=== PATIENT | female | born 1955 | race Caucasian/White ===

== ENCOUNTER → 2024-04-07 13:59 | Outpatient (REF) | payer MEDICARE, OTHER, SELFPAY | LOC: HWWDC 13:59 | PROVIDERS: ATTENDING PHYSICIAN Physician Assistant; FAMILY PHYSICIAN Student in an Organized Health Care Education/Training Program | DX: Z12.31 Encounter for screening mammogram for malignant neoplasm of breast (principal) | CPT/HCPCS: 77063; 77067 ==

== ENCOUNTER → 2024-04-27 13:01 | Outpatient (REF) | payer MEDICARE, OTHER, SELFPAY ==
[2024-04-27 14:45] LABS: Hematocrit 36.8 % (37.0-47.0); Hemoglobin 12.3 g/dL (12.0-16.0); Mean Corp Hgb Conc. 33.4 g/dL (33.0-37.0); Mean Corpuscular Hgb 31.3 pg (27.0-31.0); Mean Corpuscular Volume 93.6 fL (81.0-99.0); Mean Platelet Volume 9.7 fL (7.4-10.4); Platelet Count 268 10^3/uL (130-400); Red Blood Cell Count 3.93 10^6/uL (4.20-5.40); Red Cell Dist. Width 13.2 % (11.5-14.5); White Blood Cell Count 6.1 10^3/uL (4.8-10.8)
[2024-04-27 15:21] LABS: ALT (SGPT) 30 U/L (0-35); AST (SGOT) 32 U/L (14-36); Albumin 4.5 g/dl (3.5-5.0); Alkaline Phosphatase 70 U/L (38-126); Blood Urea Nitrogen 14 mg/dl (7-17); Calcium 9.7 mg/dl (8.4-10.2); Carbon Dioxide 28 mmol/L (22-30); Chloride 102 mmol/L (98-107); Glucose 120 mg/dl (70-99); Potassium 4.3 mmol/L (3.5-5.1); Sodium 138 mmol/L (135-145); Total Bilirubin 0.4 mg/dl (0.2-1.3); Total Protein 7.1 g/dl (6.3-8.2); eGFR > 60.00
[2024-04-27 15:39] LABS: Free T3 3.79 pg/ml (2.77-5.27); Free T4 1.18 ng/dl (0.78-2.19)
[2024-04-27 15:52] LABS: TSH 0.42 uIU/ml (0.47-4.68)
== END ==
LOC: HWLAB 13:01
PROVIDERS: ATTENDING PHYSICIAN Internal Medicine Endocrinology, Diabetes & Metabolism; FAMILY PHYSICIAN Student in an Organized Health Care Education/Training Program
DX: E05.11 Thyrotoxicosis with toxic single thyroid nodule with thyrotoxic crisis or storm (principal)
CPT/HCPCS: 36415; 80053; 84439; 84443; 84481; 85027

== ENCOUNTER → 2024-05-20 10:03 | Outpatient (REF) | payer MEDICARE, OTHER, SELFPAY | LOC: RAD 10:03 | PROVIDERS: ATTENDING PHYSICIAN Surgery Vascular Surgery; FAMILY PHYSICIAN Student in an Organized Health Care Education/Training Program | DX: I74.5 Embolism and thrombosis of iliac artery (principal); I77.9 Disorder of arteries and arterioles, unspecified | CPT/HCPCS: 93922; 93925; 93978 ==

== ENCOUNTER 2024-07-21 08:12 | Emergency (ER) | payer MEDICARE, OTHER, SELFPAY ==
[2024-07-21 08:14] VITALS: BP 145/106
--- NOTE | 2024-07-21 08:34 | ED.GENMED ---
History of Present Illness
General
Chief Complaint: Chest Pain
Source: patient
Exam Limitations: none
Time Seen by Provider: 07/21/24 08:23
Nursing documentation reviewed up to this point in time: agreed with
History of Present Illness
History of Present Illness:
69-year-old female with past medical history of asthma, vascular disease multiple vascular stents in the abdomen and iliacs presenting to the emergency department today with concerns of chest discomfort described as achy and sharp intermittently a
few times an hour over the last 4 days and also some ongoing shortness of breath made worse with exertion over the past few days as well. Has been felt somewhat lightheaded occasionally as well. Denies any nausea vomiting fevers. Currently feels
well.
Past History
Past History
ED Past Medical History: Hypercholesterolemia, Hypothyroidism and Other (chronic foot pain, trigeminal neuralgia, thyroid disease)
ED Past Surgical History: Cholecystectomy and Other (foot surgery, partial thyroidectomy, vascular surgery)
Social History
Tobacco: Smoker
Alcohol: Daily (wine 1-2 glasses)
Drug: None
Personal:
Living: with family
Employment: Retired
Review of Systems
Review of Systems
Allergies reviewed?: Yes
All Other Systems: ROS reviewed and negative except as documented in HPI and ROS
Phy Exam
Physical Exam
Physical Exam:
GENERAL: Alert , in no apparent distress
EYE: pupils equal and reactive
NECK: Supple, no significant adenopathy.
ENT: o/p clr, mmm.
CARDIAC: Regular rate and rhythm .
LUNGS: Clear breath sounds bilaterally, no acute respiratory distress, no wheezes/rales/rhonchi
ABDOMEN: Soft, without focal tenderness, no r/g, no cvat
NEUROLOGICAL: Alert and oriented, no focal neuro deficits
SKIN: Warm and dry, skin intact.
MUSCULOSKELETAL: No edema, well perfused.
PSYCH: Normal and appropriate interaction.
Scores
Heart Score for Chest Pain Patients
STEMI patient?: No
History: Slightly or Non-Suspicious
ECG: Normal
Age: >/= 65 years
Risk Factors: >/= 3 Risk Factors or History of CAD
Troponin: </= Normal Limit
Heart Score for Chest Pain Patients: 4
Heart Score Risk: 20.3% MACE over next 6 weeks
Course
Orders/Labs/Results
Orders:
Orders
07/21/24 08:17
ECG [Electrocardiogram (*1)] Urgent
Reason for Study: Chest Pain
EKG- Treatment ONCE
07/21/24 08:34
Cardiac Monitoring- Treatment ONCE
CR Chest - 2 Views Urgent
Comment:
Reason For Exam: left CP, SOB
07/21/24 08:58
Complete Blood Count/With Diff Urgent
NT-proBNP Urgent
TSH Urgent
Troponin I Urgent
07/21/24 08:59
Comprehensive Metabolic Panel Urgent
D-Dimer Urgent
Magnesium Urgent
07/21/24 10:52
Urinalysis Reflex To Culture Urgent
Date Specimen was Collected: 07/21/24
Time Specimen was Collected: 10:31
Abnormal Lab Results
07/21/24
08:59
D-Dimer 0.67 H ug/mlFEU
(0.00-0.50)
07/21/24 08:58
07/21/24 08:59
Vital Signs
Initial and Last Documented VS:
Initial Vital Signs
Temp Pulse Resp BP Pulse Ox
97.8 F 69 18 145/106 100
07/21/24 08:14 07/21/24 08:14 07/21/24 08:14 07/21/24 08:14 07/21/24 08:14
Last Documented Vital Signs
Temp Pulse Resp BP Pulse Ox
97.8 F 52 28 129/79 100
07/21/24 08:14 07/21/24 08:52 07/21/24 08:52 07/21/24 08:52 07/21/24 08:14
MDM/Problems Addressed
MDM/Problems Addressed:
69-year-old female presenting with concerns of intermittent chest pain shortness of breath lightheadedness over the past 4 days here patient is well-appearing blood pressure slightly elevated otherwise vital signs are normal. Lungs are clear heart
sounds normal good peripheral pulses. Denies recent leg swelling. Does have multiple stents and vascular disease also describes the chest pain as intermittently sharp with associated shortness of breath concerning this plan to test with a D-dimer
to rule out PE additionally testing for ACS. Age-adjusted D-dimer negative. Low risk for PE no further workup indicated in this regard troponin negative. Patient has had symptoms for multiple days indicating no evidence of ACS recently.
Additional labs without acute abnormalities. Patient well-appearing walking ambulating in no distress appears stable for outpatient follow-up closely with her district court justice return precautions given.
*Critical Care Note
Total Time (30-74mins, 75-104mins- exclusive of procedures): Not Applicable
ED Attending Note
-
Portions of this chart may have been created with voice recognition software.� Occasional wrong word or��sound alike� substitutions may have occurred due to the inherent limitations of voice recognition software.
Discharge Plan
Departure
Patient Disposition: Home (Routine Discharge)
Date of Disposition: 07/21/24
Time of Disposition: 11:05
Patient with high blood pressure during this ER visit?: No
Condition: Good
Covid-19: Not Applicable
Discharge Problem:
Chest pain
Instructions: Chest Pain NON-DHP [employer] Follow Up
Prescriptions:
No Action
albuterol sulfate 1 PUFF HFA aerosol inhaler
1 puff inhalation BID
Patient Comments:
asthma
omeprazole 40 mg Capsule,Delayed Release(Dr/Ec)
40 mg PO DAILY
aspirin 81 mg Tablet,Delayed Release (Dr/Ec)
81 mg PO DAILY
tramadol 50 mg Tablet
50 mg PO DAILY PRN (Reason: pain)
methimazole 5 mg Tablet
5 mg PO MOWEFR
ondansetron 4 mg Tablet,Disintegrating
4 mg PO Q6H PRN (Reason: nausea)
cholecalciferol (vitamin D3) [Vitamin D3] 10 mcg (400 unit) Tablet
10 mcg PO DAILY
dicyclomine 10 mg Capsule
10 mg PO TID PRN (Reason: stomach spams)
diazepam 5 mg Tablet
5 mg PO BID
ezetimibe [Zetia] 10 mg Tablet
10 mg PO QPM
rosuvastatin 10 mg Tablet
10 mg PO QPM
simethicone 125 mg Tablet,Chewable
250 mg PO BID PRN (Reason: gas)
Flonase Sensimist 27.5 mcg/actuation [place],Suspension
2 spray INTRANASAL DAILY
clopidogrel 75 mg Tablet
75 mg PO DAILY Qty: 90 0RF
Referrals:
Sol Gaxiola MD [Family Provider] -
Activity Restrictions/Additional Instructions:
You came to the emergency department today for concerns of shortness of breath and chest pain. Here you had a reassuring assessment. Please follow closely with your district court justice within 1 week. Return to the emergency department for any worsening,
new or concerning symptoms.
Discharge Date and Time
Print Language: JAPANESE
[2024-07-21 08:52] VITALS: BP 129/79
[2024-07-21 09:16] LABS: % Basophils 0.7 % (0-2); % Eosinophils 2.8 % (0-6); % Immature Granulocytes 0.2 % (0-0.5); % Lymphocytes 29.7 % (20.5-51.1); % Neutrophils 58.6 % (42.2-75.2); Absolute Eosinophils 0.2 10^3/uL (0-0.7); Absolute Lymphocytes 1.7 10^3/uL (1.2-3.4); Absolute Monocytes 0.5 10^3/uL (0.1-0.6); Absolute Neutrophils 3.4 10^3/uL (1.4-6.5); Hematocrit 40.2 % (37.0-47.0); Hemoglobin 13.6 g/dL (12.0-16.0); Mean Corp Hgb Conc. 33.8 g/dL (33.0-37.0); Mean Corpuscular Hgb 30.8 pg (27.0-31.0); Mean Corpuscular Volume 91.2 fL (81.0-99.0); Mean Platelet Volume 9.8 fL (7.4-10.4); Nucleated Red Blood Cells % 0 %; Platelet Count 238 10^3/uL (130-400); Red Blood Cell Count 4.41 10^6/uL (4.20-5.40); Red Cell Dist. Width 12.6 % (11.5-14.5); White Blood Cell Count 5.8 10^3/uL (4.8-10.8)
[2024-07-21 09:34] LABS: ALT (SGPT) 29 U/L (0-35); AST (SGOT) 33 U/L (14-36); Albumin 4.5 g/dl (3.5-5.0); Alkaline Phosphatase 68 U/L (38-126); Blood Urea Nitrogen 13 mg/dl (7-17); Calcium 9.9 mg/dl (8.4-10.2); Carbon Dioxide 26 mmol/L (22-30); Chloride 102 mmol/L (98-107); Glucose 93 mg/dl (70-99); Magnesium 1.9 mg/dl (1.6-2.3); Potassium 4.3 mmol/L (3.5-5.1); Sodium 141 mmol/L (135-145); Total Bilirubin 0.3 mg/dl (0.2-1.3); eGFR > 60.00
[2024-07-21 09:43] LABS: NT-proBNP 261 pg/ml; Troponin I < 0.012 ng/ml
[2024-07-21 10:00] LABS: D-Dimer 0.67 ug/mlFEU (0.00-0.50)
[2024-07-21 10:19] LABS: TSH 0.52 uIU/ml (0.47-4.68)
[2024-07-21 11:14] LABS: Urine Albumin Negative (Neg - Trace); Urine Bilirubin Negative (Negative); Urine Character Clear (Clear); Urine Color Yellow; Urine Glucose Negative (Negative); Urine Ketone Negative (Negative); Urine Leukocyte Negative (Negative); Urine Nitrite Negative (Negative); Urine Occult Blood Negative (Negative); Urine Urobilinogen Negative (Neg - 1+)
== END 2024-07-21 11:24 | disposition home or self-care (01) ==
LOC: EMR 08:12
PROVIDERS: Physician Assistant; EMERGENCY PHYSICIAN Student in an Organized Health Care Education/Training Program; FAMILY PHYSICIAN Student in an Organized Health Care Education/Training Program; OTHER PHYSICIAN Internal Medicine Hospice and Palliative Medicine
DX: R07.89 Other chest pain (principal); J45.909 Unspecified asthma, uncomplicated; I99.9 Unspecified disorder of circulatory system; E78.00 Pure hypercholesterolemia, unspecified; E03.9 Hypothyroidism, unspecified; I25.10 Atherosclerotic heart disease of native coronary artery without angina pectoris; F17.200 Nicotine dependence, unspecified, uncomplicated; Z90.49 Acquired absence of other specified parts of digestive tract
CPT/HCPCS: 99283; 71046; 80053; 81003; 83735; 83880; 84443; 84484; 85025; 85379; 93005

== ENCOUNTER → 2024-08-10 10:05 | Outpatient (REF) | payer MEDICARE, OTHER, SELFPAY | LOC: RAD 10:05 | PROVIDERS: ATTENDING PHYSICIAN Surgery Vascular Surgery; FAMILY PHYSICIAN Student in an Organized Health Care Education/Training Program | DX: I73.9 Peripheral vascular disease, unspecified (principal) | CPT/HCPCS: 75635; Q9967 ==

== ENCOUNTER → 2024-08-31 08:16 | Outpatient (REF) | payer MEDICARE, OTHER, SELFPAY | LOC: RAD 08:16 | PROVIDERS: ATTENDING PHYSICIAN Surgery Vascular Surgery; FAMILY PHYSICIAN Student in an Organized Health Care Education/Training Program | DX: I73.9 Peripheral vascular disease, unspecified (principal); I65.23 Occlusion and stenosis of bilateral carotid arteries | CPT/HCPCS: 93880 ==

== ENCOUNTER 2024-09-21 06:09 | Day surgery (SDC) | payer MEDICARE, OTHER, SELFPAY ==
[2024-09-21] VITALS (21 sets, daily range): BP systolic 80–155; BP diastolic 36–115; BMI 22.1
[2024-09-21 07:06] LABS: Hematocrit 35.6 % (37.0-47.0); Hemoglobin 12.4 g/dL (12.0-16.0); Mean Corp Hgb Conc. 34.8 g/dL (33.0-37.0); Mean Corpuscular Hgb 31.8 pg (27.0-31.0); Mean Corpuscular Volume 91.3 fL (81.0-99.0); Platelet Count 210 10^3/uL (130-400); Red Cell Dist. Width 12.9 % (11.5-14.5); White Blood Cell Count 9.3 10^3/uL (4.8-10.8)
[2024-09-21] MEDS: NSS 181 ML IV (07:08)
[2024-09-21 07:13] LABS: INR 0.97; PT 13.3 Sec (11.4-14.6)
[2024-09-21 07:14] LABS: APTT 27.2 Sec (23.4-35.0)
[2024-09-21] MEDS: IMODIUM 2 MG PO (07:21)
[2024-09-21 07:25] LABS: Blood Urea Nitrogen 14 mg/dl (7-17); Calcium 9.6 mg/dl (8.4-10.2); Carbon Dioxide 23 mmol/L (22-30); Chloride 105 mmol/L (98-107); Estimated Creatinine Clearance 77 ml/min; Glucose 124 mg/dl (70-99); Potassium 3.9 mmol/L (3.5-5.1); Sodium 138 mmol/L (135-145); eGFR > 60.00
--- NOTE | 2024-09-21 07:34 | W.SUR.PREOP ---
Pre-Operative Surgical Note
-
I have examined this patient prior to the performance of the scheduled procedure.
The patient's condition is unchanged from the time of the current History and
Physical and the patient is able to undergo the scheduled procedure.
--- NOTE | 2024-09-21 08:24 | W.IMMPOSTOP ---
Surgical Immed Post Op Note
-
Primary Surgeon: Dr. Cristian Navarro III, MD
Assisting Surgeon: Bill Simms MD, PhD (PGY-2)
Pre-op Diagnosis: Right external iliac artery stenosis
Post-op Diagnosis: Right external iliac artery stenosis
Procedure Performed: Right lower extremity arteriogram, balloon angioplasty with stent
Anesthesia Type: MAC
Specimen / Cultures: None
Estimated Blood Loss: 2cc
Complications: None
Operative Findings: The patient was brought to the OR and prepped and draped in usual sterile fashion. Fluoroscopy was used to identify the inferior and superior borders of the femoral head and this was marked at the skin level. Ultrasound guidance
was used to to identify the right common femoral artery. Micropuncture kit was used to access the right common femoral artery. This was upsized to a 5 sami sheath over a Rsync.netson wire. Diagnostic arteriogram showed a patent aorto-iliac stent
extending into the left external iliac artery and right common iliac artery. There was a focal area of stenosis observed in the right external iliac artery. Balloon angioplasty was performed and a stent was delivered at this site. A balloon
angioplasty was again performed at the distal aspect of the right common iliac stent and again at the external iliac to common femoral artery. At the conclusion of the case, completion arteriogram showed a patent aortoiliac stent system as well as a
patent external iliac stent. The patient was transferred to the PACU in stable condition with doppler signals noted in her DP and PT.
--- NOTE | 2024-09-21 08:30 | OR.RPT ---
Operative Report
Operative Report
Date of Operation: 09/21/2024
Pre Op Diagnosis: High-grade stenosis right external iliac artery
Post Op Diagnosis: High-grade stenosis right external iliac artery
Procedure:
1.) Balloon angioplasty and stenting of right external iliac artery (7 mm x 59 mm Robinson VBX stent)
2.) balloon angioplasty of right common femoral artery (7 mm x 40 mm)
3.) Diagnostic aortobiiliac arteriogram
4.) Ultrasound-guided percutaneous access to the right common femoral artery
Surgeon: Cristian Navarro III, MD
Code Enforcement Supervisor: Bill Simms MD PhD, PGY2
Anesthesia: Sedation with local
Fluoroscopy:
6.3 min
65 mGy
17.93 Gy.cm2
Complications: None
Estimated Blood Loss: Less than 5 cc
History and Indications for Procedure: 69-year-old female status post extensive aortoiliac stent grafting for debilitating lower extremity claudication. On surveillance imaging she developed a high-grade stenosis of her right external iliac artery.
We brought her to the operating room for endovascular intervention.
Procedure in Detail: Sita Ibarra was correctly identified and placed supine on the operating table. After adequate induction of anesthesia the bilateral groins were prepped and draped in the usual sterile fashion. A timeout was performed with the
nursing and anesthesia staff confirming the patient's identity as well as the nature and laterality of the procedure.
The right common femoral artery was identified under ultrasound guidance. The artery was patent. The superior and inferior aspects of the femoral head were identified with radiographic guidance and marked at the skin level. The proposed puncture
site was infiltrated with local anesthesia. Under ultrasound guidance we accessed the right common femoral artery with a micropuncture needle and upsized to a 6 Fr sheath over a Bentson wire.
A diagnostic arteriogram was performed through the 6 [place] retrograde sheath. This confirmed a high-grade stenosis involving the proximal right external iliac artery. The iliac bifurcation was patent.
ENDOVASCULAR INTERVENTION: Systemic heparin was administered. Under roadmap guidance I brought into position a 7 mm x 59 mm Robinson VBX stent. The stent was positioned in the desired location in the right external iliac artery and deployed by
inflating the balloon to nominal pressure. Subsequent arteriogram demonstrated a widely patent stent with no residual stenosis identified. There was however a more distal stenosis involving the common femoral artery. I treated this with a 7 mm x
40 mm angioplasty balloon.
COMPLETION ARTERIOGRAM: Excellent technical result. Widely patent right external iliac artery stent. Patent common femoral artery with only mild residual stenosis identified.
Satisfied with this result we concluded the procedure. Protamine was administered. The sheath tip was secured in place with the plan to pull it in the recovery room.
The patient tolerated the procedure well and was taken to the recovery area in stable condition.
Attestation: I was present and responsible for the entire procedure.
Signed:
Cristian Navarro III, MD
[facility]
[phone] (rrsm)
[2024-09-21] MEDS: TYLENOL 650 MG PO (08:57)
[2024-09-21] MEDS: ROXICODONE 5 MG PO (09:35)
[2024-09-21] MEDS: NSS 1000 IV (09:39)
== END 2024-09-21 14:51 | disposition home or self-care (01) ==
LOC: CATH 06:09
PROVIDERS: ATTENDING PHYSICIAN Surgery Vascular Surgery; FAMILY PHYSICIAN Student in an Organized Health Care Education/Training Program; OTHER PHYSICIAN Student in an Organized Health Care Education/Training Program
DX: I70.211 Atherosclerosis of native arteries of extremities with intermittent claudication, right leg (principal); I70.8 Atherosclerosis of other arteries; Z79.82 Long term (current) use of aspirin; Z79.02 Long term (current) use of antithrombotics/antiplatelets; E03.9 Hypothyroidism, unspecified; K21.9 Gastro-esophageal reflux disease without esophagitis; Z87.891 Personal history of nicotine dependence; Z95.820 Peripheral vascular angioplasty status with implants and grafts
CPT/HCPCS: 37221; 37224; 75630; 80048; 85027; 85610; 85730; 86850; 86900; 86901; C1725; C1769; C1874; C1894; Q9967

== ENCOUNTER → 2024-10-22 08:46 | Outpatient (REF) | payer MEDICARE, OTHER, SELFPAY ==
[2024-10-22 11:01] LABS: Hematocrit 40.7 % (37.0-47.0); Hemoglobin 13.3 g/dL (12.0-16.0); Mean Corp Hgb Conc. 32.7 g/dL (33.0-37.0); Mean Corpuscular Hgb 30.7 pg (27.0-31.0); Mean Platelet Volume 10.4 fL (7.4-10.4); Platelet Count 236 10^3/uL (130-400); Red Blood Cell Count 4.33 10^6/uL (4.20-5.40); Red Cell Dist. Width 12.8 % (11.5-14.5); White Blood Cell Count 5.2 10^3/uL (4.8-10.8)
[2024-10-22 11:21] LABS: ALT (SGPT) 24 U/L (0-35); AST (SGOT) 28 U/L (14-36); Albumin 4.5 g/dl (3.5-5.0); Alkaline Phosphatase 58 U/L (38-126); Blood Urea Nitrogen 14 mg/dl (7-17); Calcium 9.5 mg/dl (8.4-10.2); Carbon Dioxide 28 mmol/L (22-30); Chloride 101 mmol/L (98-107); Glucose 77 mg/dl (70-99); Potassium 4.5 mmol/L (3.5-5.1); Sodium 139 mmol/L (135-145); Total Bilirubin 0.2 mg/dl (0.2-1.3); Total Protein 7.1 g/dl (6.3-8.2); eGFR > 60.00
[2024-10-22 12:03] LABS: Free T3 3.73 pg/ml (2.77-5.27); Free T4 1.19 ng/dl (0.78-2.19)
[2024-10-22 12:17] LABS: TSH 0.17 uIU/ml (0.47-4.68)
== END ==
LOC: RAD 08:46
PROVIDERS: ATTENDING PHYSICIAN Surgery Vascular Surgery; FAMILY PHYSICIAN Student in an Organized Health Care Education/Training Program; REFERRING PHYSICIAN Internal Medicine Endocrinology, Diabetes & Metabolism
DX: I77.9 Disorder of arteries and arterioles, unspecified (principal); E05.11 Thyrotoxicosis with toxic single thyroid nodule with thyrotoxic crisis or storm
CPT/HCPCS: 36415; 80053; 84439; 84443; 84481; 85027; 93922; 93925; 93978

== ENCOUNTER → 2024-10-27 08:19 | Outpatient (REF) | payer MEDICARE, OTHER, SELFPAY | LOC: RAD 08:19 | PROVIDERS: ATTENDING PHYSICIAN Surgery Vascular Surgery; FAMILY PHYSICIAN Student in an Organized Health Care Education/Training Program | DX: I74.5 Embolism and thrombosis of iliac artery (principal); I74.09 Other arterial embolism and thrombosis of abdominal aorta | CPT/HCPCS: 75635; Q9967 ==

== ENCOUNTER 2024-11-08 11:28 | Inpatient (IN) | payer MEDICARE, OTHER, SELFPAY ==
[2024-11-04 09:18] VITALS: BMI 22.9
[2024-11-04 09:45] LABS: % Basophils 0.5 % (0-2); % Eosinophils 4.1 % (0-6); % Immature Granulocytes 0.2 % (0-0.5); % Lymphocytes 39.3 % (20.5-51.1); % Monocytes 9.9 % (1.7-9.3); Absolute Eosinophils 0.2 10^3/uL (0-0.7); Absolute Lymphocytes 1.7 10^3/uL (1.2-3.4); Absolute Monocytes 0.4 10^3/uL (0.1-0.6); Hematocrit 36.1 % (37.0-47.0); Mean Corp Hgb Conc. 33.2 g/dL (33.0-37.0); Mean Corpuscular Hgb 31.1 pg (27.0-31.0); Mean Corpuscular Volume 93.5 fL (81.0-99.0); Mean Platelet Volume 10.1 fL (7.4-10.4); Nucleated Red Blood Cells % 0 %; Platelet Count 229 10^3/uL (130-400); Red Blood Cell Count 3.86 10^6/uL (4.20-5.40); Red Cell Dist. Width 13.2 % (11.5-14.5); White Blood Cell Count 4.4 10^3/uL (4.8-10.8)
[2024-11-04 09:51] LABS: INR 0.94; PT 13.1 Sec (11.4-14.6)
[2024-11-04 09:52] LABS: APTT 26.9 Sec (23.4-35.0)
[2024-11-04 09:54] LABS: Blood Urea Nitrogen 13 mg/dl (7-17); Calcium 9.4 mg/dl (8.4-10.2); Carbon Dioxide 27 mmol/L (22-30); Estimated Creatinine Clearance 66 ml/min; Glucose 93 mg/dl (70-99); eGFR > 60.00
[2024-11-04 09:59] LABS: Chloride 99 mmol/L (98-107); Potassium 4.4 mmol/L (3.5-5.1); Sodium 133 mmol/L (135-145)
[2024-11-08] VITALS (21 sets, daily range): BP systolic 80–152; BP diastolic 39–94; BMI 22.3
[2024-11-08] MEDS: PERIDEX 0.12% ORAL RINSE 15 ML PO (12:19)
[2024-11-08] MEDS: NSS 500 IV ×3 (12:19→19:54)
[2024-11-08] MEDS: BACTROBAN NASAL 1 GRAM NASAL (12:19)
[2024-11-08 16:26] LABS: ACT-LR - POC 102 Seconds (116-155)
[2024-11-08 16:32] LABS: ACT-LR - POC 253 Seconds (116-155)
[2024-11-08] MEDS: DILAUDID 0.25 MG IV ×2 (18:32→18:52)
[2024-11-08 18:44] LABS: Hematocrit 36.3 % (37.0-47.0); Hemoglobin 11.8 g/dL (12.0-16.0); Mean Corp Hgb Conc. 32.5 g/dL (33.0-37.0); Mean Corpuscular Hgb 30.6 pg (27.0-31.0); Mean Corpuscular Volume 94.3 fL (81.0-99.0); Platelet Count 209 10^3/uL (130-400); Red Blood Cell Count 3.85 10^6/uL (4.20-5.40); Red Cell Dist. Width 13.3 % (11.5-14.5); White Blood Cell Count 7.4 10^3/uL (4.8-10.8)
[2024-11-08 18:58] LABS: Blood Urea Nitrogen 11 mg/dl (7-17); Calcium 8.9 mg/dl (8.4-10.2); Carbon Dioxide 23 mmol/L (22-30); Chloride 104 mmol/L (98-107); Estimated Creatinine Clearance 77 ml/min; Glucose 124 mg/dl (70-99); Sodium 135 mmol/L (135-145); eGFR > 60.00
--- NOTE | 2024-11-08 19:24 | OR.RPT ---
Operative Report
Operative Report
Date of Operation: 11/08/2024
Pre Op Diagnosis: Subacute occlusion of recently placed right external iliac artery stent
Post Op Diagnosis: Subacute occlusion of recently placed right external iliac artery stent
Procedure:
1. Right common femoral artery endarterectomy with patch angioplasty using bovine pericardium
2. Retrograde balloon angioplasty and stenting of right external iliac artery (overlapping 7 mm x 59 mm [place] VBX, 7 mm x 39 mm [place] VBX, 7 mm x 22 mm iCast)
Surgeon: Cristian Navarro III, MD
Labor Relations Analyst: RODERICK Gonzalez (assisted with incision, exposure, endarterectomy, patch angioplasty)
Anesthesia: General
Complications: None
Estimated Blood Loss: 50 cc
History and Indications for Procedure: 69-year-old female with extensive atherosclerotic aortoiliac disease who previously underwent aortoiliac stent grafting for severe calcified occlusive disease. She developed an outflow stenosis in the [place]
right external iliac artery that was recently treated with percutaneous balloon angioplasty and stenting. She re- presented with pain in her right leg shortly after the procedure and was found to have an occlusion of the external iliac artery stent
with reconstitution of the common femoral artery distally. I brought her back to the operating room for intervention..
Procedure in Detail: Sita Ibarra was correctly identified and placed supine on the operating table. After adequate induction of anesthesia her abdomen, pelvis and bilateral groins were prepped and draped in the usual sterile fashion. She
received preoperative antibiotics. A timeout procedure was performed with the nursing and anesthesia staff confirming the patient's identity as well as the nature and laterality of the procedure. I made a vertical incision in her right groin.
Electrocautery and sharp dissection were used to expose the right common femoral artery. We continued dissection under the inguinal ligament and I obtained vessel loop control around the distal external iliac artery under the inguinal ligament. I
continued dissection distally towards the femoral bifurcation. The distal common femoral artery and femoral bifurcation was very soft and free of palpable plaque. The common femoral artery at the bifurcation was encircled with a vessel loop.
The patient was systemically heparinized. The distal vessel loop was secured to prevent any distal embolization. I punctured the right common femoral artery in a retrograde fashion with a micropuncture needle and then upsized to a 5 [place] sheath
over a Bentson wire. The Bentson wire was navigated retrograde across the occluded external iliac artery stent. I then upsized to a 7 [place] sheath over the Bentson wire. An arteriogram was performed which confirmed the occluded right external
iliac artery stent and a widely patent right internal iliac artery with brisk flow. I made the decision to realign the external iliac artery stents. Under fluoroscopic guidance and magnification view I positioned a 7 mm x 59 mm [place] VBX stent
across the existing external iliac artery stent. This was deployed without difficulty. I then brought into position a 7 mm x 39 mm [place] VBX stent and extended this distally. I left the balloon up for proximal control.
I then retracted the 7 [place] sheath. I lengthened the arterial puncture site proximally and distally with Garcia scissors to get a clear inspection of the common femoral artery and distal external iliac artery. There was plaque along the posterior
wall of the common femoral artery and there did appear to be a dissection flap more proximally which may have been responsible for the stent occlusion. With the common femoral artery widely opened I performed an endarterectomy in the standard
fashion with a [place] elevator. Plaque was completely removed from the distal external iliac artery and common femoral artery. I was able to clearly visualize the distal end of the stent and the balloon within the distal external iliac artery and
felt comfortable that there was a widely patent lumen. The distal end of the plaque feathered at the femoral bifurcation with a slight posterior intimal flap. This was tacked down with 2 interrupted 6-0 Prolene sutures along the back wall. A
precut piece of bovine pericardium was brought onto the field and used as a patch. The patch was sewn in place with a running 6-0 Prolene suture. Just prior to the completion of the anastomosis the balloon was taken down and removed over the wire.
There was brisk pulsatile inflow at this point. The proximal vessel loop was secured. The anastomosis was completed.
I punctured the patch with the micropuncture needle and upsized to the 7 [place] sheath over a Bentson wire. Completion imaging demonstrated that there was some irregularity to the distal aspect of the distal external iliac stent. I was not
satisfied leaving this alone and therefore realigned the distal aspect with a 7 mm x 22 mm iCast. This provided an excellent technical result. Completion arteriogram demonstrated a widely patent right external iliac artery, right common femoral
artery, proximal profunda femoral artery and proximal superficial femoral artery with brisk flow.
Satisfied with this result I then removed the sheath. The patch puncture site was repaired with a 5-0 Prolene suture. The suture line was closely inspected for hemostasis. Hemostasis was achieved. Protamine was administered. There was an
excellent pulse within the common femoral artery, proximal superficial femoral artery and proximal profunda femoral artery.
The wound was irrigated with saline solution. Hemostasis was achieved in the wound bed. The wound was then closed in multiple layers and a sterile Luis[place] dressing was applied.
The patient tolerated the procedure well and was taken to the recovery room in good condition. The patient had a palpable DP pulse at the conclusion of the case.
Attestation: I was present and responsible for the entire procedure
Signed:
Cristian Navarro III, MD
[facility]
[phone] (xxiy)
--- NOTE | 2024-11-08 20:00 | PTCARENOTE ---
Received pt via transfer from PACU. Pt AAOx3 able to COLES, afebrile. NST with palpable pulses on LE. No edema. 98% 2L NC, diminished lung sounds throughout. Hypoactive bowel sounds in all 4Q. Navarro CDI draining clear yellow urine. Skin CDI with
surgical dressing in place with no new drainage, STEFFEN in place. Gtts running see flowsheet. Pt says chronic pain in lower back and legs. Family and call gaming at bedside.
[2024-11-08] MEDS: CRESTOR 10 MG PO (20:08)
[2024-11-08] MEDS: MAG-TAB SR 84 MG PO (20:09)
[2024-11-08] MEDS: ZETIA 10 MG PO (20:09)
[2024-11-08] MEDS: NSS 1000 IV (20:09)
[2024-11-08] MEDS: DILAUDID 0.5 MG IV ×2 (20:10→23:00)
[2024-11-08] MEDS: HEPARIN 5000 UNITS SC (20:10)
[2024-11-08] MEDS: ROXICODONE 10 MG PO (21:05)
[2024-11-08] MEDS: BENTYL 10 MG PO (21:25)
[2024-11-09] VITALS (25 sets, daily range): BP systolic 94–166; BP diastolic 41–86; PULSE 63–64; O2SAT 92–100; BMI 22.4
--- NOTE | 2024-11-09 | PTCARENOTE ---
All systems reassessed. Neurovascular checks remain the same. No new drainage on surgical site. Pt c/o chronic pain in lower back and legs. NS gtt running see flowsheet. Call gaming at bedside.
[2024-11-09] MEDS: ROXICODONE 10 MG PO ×3 (01:09→18:48)
[2024-11-09] MEDS: DILAUDID 0.5 MG IV ×5 (01:10→15:15)
--- NOTE | 2024-11-09 03:52 | PTCARENOTE ---
All systems reassessed, labs drawn, hygiene performed. Surgical site remains the same. Call gaming at bedside.
[2024-11-09 04:02] LABS: Hematocrit 29.4 % (37.0-47.0); Mean Corpuscular Hgb 31.7 pg (27.0-31.0); Mean Corpuscular Volume 93.3 fL (81.0-99.0); Mean Platelet Volume 10.6 fL (7.4-10.4); Platelet Count 148 10^3/uL (130-400); Red Blood Cell Count 3.15 10^6/uL (4.20-5.40); Red Cell Dist. Width 13.2 % (11.5-14.5); White Blood Cell Count 6.8 10^3/uL (4.8-10.8)
[2024-11-09 04:09] LABS: Blood Urea Nitrogen 10 mg/dl (7-17); Calcium 8.4 mg/dl (8.4-10.2); Carbon Dioxide 22 mmol/L (22-30); Chloride 105 mmol/L (98-107); Estimated Creatinine Clearance 77 ml/min; Glucose 110 mg/dl (70-99); Sodium 135 mmol/L (135-145); eGFR > 60.00
[2024-11-09 04:39] LABS: INR 1.01; PT 13.8 Sec (11.4-14.6)
[2024-11-09] MEDS: NSS 1000 IV (04:39)
[2024-11-09 04:40] LABS: APTT 26.4 Sec (23.4-35.0)
--- NOTE | 2024-11-09 07:40 | W.PN.VS ---
Addendum entered and electronically signed by Cristian Navarro III, MD 11/09/24 11:11:
This patient was seen and examined with RODERICK Drummond. I agree with the history and physical exam as well as the assessment and plan. I have the following additions:
Looks great this AM
Palp R DP, foot pink/warm
STEFFEN intact and holding sxn
Agree with the plan
DAPT
Signed:
Cristian Navarro III, MD
[facility]
[phone] (cell)
Original Note:
Today's Communication / Plan
-
Seen and assessed Dr. Navarro
Assessment/Plan
-
POD 1 Right common femoral artery endarterectomy with patch angioplasty using bovine pericardium
Retrograde balloon angioplasty and stenting of right external iliac artery (overlapping 7 mm x 59 mm [place] VBX, 7 mm x 39 mm [place] VBX, 7 mm x 22 mm iCast)
Plan:
-Out of bed/PT/OT
-ARIAS Navarro
-Increase p.o. intake
-Home medications restarted
-Encourage IS
-May transfer to [address] [place] [address]/[facility]
Subjective Data
-
Date of Service: November 09, 2024
Patient seen at bedside hemodynamically. Patient offers no complaints at this time. Patient doing well overall. No events overnight.
Objective Data
-
Vital Signs
Temp Pulse Resp BP Pulse Ox
97.9 F 55 22 97/45 99
11/09/24 07:00 11/09/24 08:30 11/09/24 08:30 11/09/24 07:30 11/09/24 08:36
Intake and Output
11/08/24 11/09/24 11/10/24
06:59 06:59 06:59
Intake Total 980 / 1060 240 / 240
Output Total 910 / 1110 400 / 400
Balance 70 / -50 -160 / -160
Intake:
IV fluids (Total) 980 / 1060 240 / 240
NS 880 / 960 160 / 160
Nss 1,000 ml @ 80 mls/hr IV . 80 / 80
[id number] KAYCE Rx#:[id number]
normosol 100 / 100
Output:
Urine, Navarro 850 / 1050 400 / 400
Urine, Voided 60 / 60
Lab Results
11/09/24 03:33
11/09/24 03:33
Calcium 8.4 mg/dl (8.4-10.2) 11/09/24 03:33
Physical Exam
-
AAOx3
No tachypnea on room air
No tachycardia
Abdomen soft
Groin site clean, dry, intact, soft, flat
Feet warm and pink
Right palpable DP pulse
[2024-11-09] MEDS: PROTONIX 40 MG PO (08:00)
[2024-11-09] MEDS: PLAVIX 75 MG PO (08:00)
[2024-11-09] MEDS: VITAMIN D3 (cholecalciferol) 25 MCG PO (08:00)
[2024-11-09] MEDS: ASPIR LOW (ENTERIC COATED) 81 MG PO (08:00)
[2024-11-09] MEDS: COLACE 100 MG PO (08:01)
[2024-11-09] MEDS: LIORESAL 5 MG PO (08:01)
[2024-11-09] MEDS: HEPARIN 5000 UNITS SC ×2 (08:01→19:42)
--- NOTE | 2024-11-09 08:39 | PTCARENOTE ---
pt aaox3. states 06/19 chronic pain in both legs and lower back. pain med given as ordered. right groin surgical site with peco dressing intact small amt old drainage. no swelling or hematoma noted. dp pulses normal on right and left foot. legs
pink warm. sanchez removed as ordered. pt ambulated to bathroom with walk along. ivf running as ordered.
--- NOTE | 2024-11-09 10:44 | CON.INTV ---
Consultation
Consultation Request
Date/Time Consultation Requested: 11/09/2024
Date/Time Consultation Performed: 11/09/2024
Requesting Provider: Dr. Navarro
Performing Provider: Dr. Phu Tirvedi
Reason for Consultation: Status post right common femoral artery endarterectomy
Medical History
-
History of Present Illness:
69-year-old woman with past medical history significant for osteoporosis, gastroparesis, anxiety, trigeminal neuralgia, asthma, peripheral arterial disease. Electively admitted for revascularization. Underwent right, femoral artery endarterectomy
with patch angioplasty and bovine pericardium. 11/08/2024. Underwent without complications, patient transferred to the critical care unit for hemodynamic monitoring.
This morning mostly asymptomatic. Hemodynamically stable.
No significant discomfort.
Doing well postoperatively
Past Medical History
Past Medical History: Other ( see assessment and plan)
Allergies / Home Medications
Allergies
Allergy/AdvReac Type Severity Reaction Status Date / Time
tobramycin Allergy Severe Anaphylaxis Verified 11/08/24 11:49
erythromycin base Allergy Unknown liver Verified 11/08/24 11:49
issues
atorvastatin Allergy myalgia Verified 11/08/24 11:49
codeine Allergy Nausea / Verified 11/08/24 11:49
[From Tylenol-Codeine #3] Vomiting
morphine Allergy Shortness Verified 11/08/24 11:49
of Breath
and chest
pressure
simvastatin Allergy myalgia Verified 11/08/24 11:49
Home Medications
�Medication �Instructions �Recorded �Confirmed �Last Taken �Type
albuterol sulfate 90 mcg/actuation 2 puff inhalation BID PRN 12/11/15 11/08/24 11/07/24 08:00 History
aerosol inhaler allergy/asthma
aspirin 81 mg tablet,delayed 81 mg PO DAILY 09/16/23 11/08/24 11/08/24 04:30 History
release
diazepam 5 mg tablet 5 mg PO BID 09/16/23 11/08/24 11/07/24 23:45 History
dicyclomine 10 mg capsule 10 mg PO TID PRN stomach spams 09/16/23 11/08/24 11/07/24 19:00 History
ezetimibe 10 mg tablet (Zetia) 10 mg PO QPM 09/16/23 11/08/24 11/07/24 16:00 History
omeprazole 40 mg capsule,delayed 40 mg PO DAILY 09/16/23 11/08/24 11/07/24 04:00 History
release
ondansetron 4 mg disintegrating 4 mg PO Q6H PRN nausea 09/16/23 11/08/24 11/07/24 14:00 History
tablet
rosuvastatin 10 mg tablet 10 mg PO QPM 09/16/23 11/08/24 11/07/24 16:00 History
clopidogrel 75 mg tablet 75 mg PO DAILY #90 tabs 09/26/23 11/08/24 11/08/24 04:30 Rx
fluticasone furoate 27.5 2 spray intranasal DAILY PRN 09/26/23 11/08/24 10/10/24 06:00 History
mcg/actuation nasal allergies/congestion
spray,suspension (Flonase
Sensimist)
simethicone 125 mg chewable tablet 250 mg PO BID PRN gas 09/26/23 11/08/24 11/07/24 16:00 History
cholecalciferol (vitamin D3) 25 25 mcg PO DAILY 09/20/24 11/08/24 11/07/24 16:00 History
mcg (1,000 unit) capsule (Vitamin
D3)
docusate sodium 100 mg capsule 100 mg PO DAILY PRN constipation 09/20/24 11/08/24 11/07/24 20:00 History
(Colace)
magnesium 200 mg tablet 200 mg PO QPM 09/20/24 11/08/24 10/10/24 08:00 History
polyethylene glycol 3350 17 4 g PO DAILY PRN constipation 09/20/24 11/08/24 10/31/24 08:00 History
gram/dose oral powder (Miralax)
baclofen 5 mg tablet 5 mg PO DAILY PRN Pain 09/21/24 11/08/24 04/10/24 08:00 History
oxycodone 10 mg tablet 10 mg PO Q6H PRN pain 11/01/24 11/08/24 11/07/24 23:45 History
Review of Systems
Vitals / Labs / Diagnostic Testing
Vital Signs
Temp Pulse Resp BP Pulse Ox
97.9 F 72 20 94/43 99
11/09/24 07:00 11/09/24 10:15 11/09/24 10:15 11/09/24 09:45 11/09/24 10:15
Lab Data
11/09/24 03:33
11/09/24 03:33
Laboratory Results
11/09/24 11/09/24
03:33 04:10
PT Cancelled 13.8
INR Cancelled 1.01
APTT Cancelled 26.4
Diagnostic Testing:
Assessment
-
69-yo F with PMHx of PAD c/b advanced aortoiliac athersclerotic disease who p/w elective lower extremity revascularization. Pt transferred to ICU post-operatively and critical care service is consulted for additional recommendations/management:
Status post: 11/08/2024
1. Right common femoral artery endarterectomy with patch angioplasty using bovine pericardium
2. Retrograde balloon angioplasty and stenting of right external iliac artery
Conditions present prior admission:
Severe PAD with advanced aortoiliac disease s/p shockwave lithotripsy, aorto-iliac stent grafting and balloon angioplasty of b/l lower extremities. 09/2023
Asthma (unspecified severity, suspect mild intermittent)
HLD
PND
Plan:
Postoperative day 1
Doing very well.
- Post-operative management per vascular surgery
Hemodynamically stable
Peripheral pulses are present, right lower extremity is warm.
Hemoglobin is 10, no evidence for hematoma on incision.
Follow H&H
Continue antiplatelets
-
-Maintain MAP >60�65
-Continue with analgesia-denies any significant pain at this point.
- Goal SpO2 >90-94% with supplemental O2 as needed
-Not bronchospastic on exam, only on albuterol as needed in the outpatient setting.
-
- encourage pt to get OOB and to chair per protocol
- Incentive spirometer
- DVT ppx-heparin subcu
Advance diet
Discontinue IV fluid
-
Patient has been transferred to telemetry.
Critical care team will sign off.
[2024-11-09] MEDS: VALIUM 5 MG PO (11:40)
[2024-11-09] MEDS: BENTYL 10 MG PO (11:44)
--- NOTE | 2024-11-09 12:21 | PTCARENOTE ---
pt increasingly anxious about being transferred to [facility], her surgery and family issues. asked for her Valium she takes at home. vascular paperhanger made aware and medication ordered. report given and [facility]
--- NOTE | 2024-11-09 12:40 | PTCARENOTE ---
Pt received from ICU via bed. Transfer was w/o incident. Pt is AAOx3, HRR, resp. easy, pulse ox 99%RA. Pt reports normal sensation to right leg/foot. right DP pulse bounding to palpation. Right PT weak to palpation and strong using Doppler. Pt
voiding in the BR w/o difficulty. Pt escorted to BR and noted to have a steady gait w/o assist. Pt c/o chronic back and leg pain. Will medicate for pain as ordered. Pt oriented to new hosp. room, call gaming is within reach.
--- NOTE | 2024-11-09 15:24 | CM ---
CM following re: discharge planning.
Reviewed pt's chart, met with pt and pt's son lv at bedside.
pt is a 69 year old female, admitted with primary dx of POD 1 s/p Right common femoral artery endarterectomy.
Pt reports she lives with and a son in a 2SH, 1 step to enter, has 4 supportive living children. Pt reports she lost one son last year. Emotional support offered and provided. Pt described herself as independent in all areas DIRECT ENTRY MIDWIFE, has a cane
and a walker and does not use them.
PT and OT evaluations noted - pt has no skilled PT/OT needs.
PCP: Sol Gaxiola
Pharmacy: [facility]
D/C plan: home no needs. Family to transport at discharge.
CM will follow with discharge plan updates as needed.
[2024-11-09] MEDS: CRESTOR 10 MG PO (18:46)
[2024-11-09] MEDS: MAG-TAB SR 84 MG PO (18:48)
[2024-11-09] MEDS: ZETIA 10 MG PO (18:48)
[2024-11-10] MEDS: ROXICODONE 10 MG PO ×3 (01:29→10:14)
[2024-11-10 03:20] VITALS: BP 122/57
[2024-11-10] MEDS: BENTYL 10 MG PO (04:53)
[2024-11-10] MEDS: TYLENOL 650 MG PO (04:53)
--- NOTE | 2024-11-10 07:33 | W.PN.VS ---
Today's Communication / Plan
-
d/c home per patient request
Assessment/Plan
-
POD 2 Right common femoral artery endarterectomy with patch angioplasty using bovine pericardium
Retrograde balloon angioplasty and stenting of right external iliac artery (overlapping 7 mm x 59 mm [place] VBX, 7 mm x 39 mm [place] VBX, 7 mm x 22 mm iCast)
Plan:
-doing great
- ok fore discharge
- follow up in 1 week
Subjective Data
-
Date of Service: November 10, 2024
doing very well
no issues
very eager to go home today
Objective Data
-
Vital Signs
Temp Pulse Resp BP Pulse Ox
98.3 F 71 16 122/57 95
11/10/24 03:20 11/10/24 03:20 11/10/24 03:20 11/10/24 03:20 11/10/24 03:20
Intake and Output
11/09/24 11/10/24 11/11/24
06:59 06:59 06:59
Intake Total 980 / 1060 1460 / 1460
Output Total 910 / 1110 400 / 400
Balance 70 / -50 1060 / 1060
Intake:
Oral fluids 960 / 960
IV fluids (Total) 980 / 1060 500 / 500
NS 880 / 960 160 / 160
Nss 1,000 ml @ 80 mls/hr IV . 240 / 240
[id number] [facility] Rx#:[id number]
normosol 100 / 100
Output:
Urine, Navarro 850 / 1050 400 / 400
Urine, Voided 60 / 60
Other:
Number of approximated SMALL 2
amounts of urine
Number of approximated MODERATE 1
amounts of urine
Lab Results
11/09/24 03:33
11/09/24 03:33
Calcium 8.4 mg/dl (8.4-10.2) 11/09/24 03:33
Physical Exam
-
dressing intact
abd soft
non tender
+ DP pulse
foot warm
ambulating well
[2024-11-10 08:00] VITALS: BP 112/54
[2024-11-10] MEDS: HEPARIN 5000 UNITS SC (09:06)
[2024-11-10] MEDS: PROTONIX 40 MG PO (09:06)
[2024-11-10] MEDS: ASPIR LOW (ENTERIC COATED) 81 MG PO (09:06)
[2024-11-10] MEDS: VITAMIN D3 (cholecalciferol) 25 MCG PO (09:06)
[2024-11-10] MEDS: PLAVIX 75 MG PO (09:06)
--- NOTE | 2024-11-10 09:31 | CM ---
CM spoke with patient son Paras and he confirms that patient is for discharge home with no needs. And his sister a critical care nurse will be here to support her tomorrow. Patient son confirms awareness of the IMM that was completed 11/08 at
11;33am. CM will continue to follow for discharge planning needs.
Plan; home with family, no needs.
== END 2024-11-10 10:43 | disposition home or self-care (01) | DRG 254 ==
LOC: 2 SOUTH 11:28
PROVIDERS: Nurse Practitioner; ADMITTING PHYSICIAN Surgery Vascular Surgery; CONSULT PHYSICIAN Internal Medicine Critical Care Medicine; FAMILY PHYSICIAN Student in an Organized Health Care Education/Training Program
PROC: 04CK0ZZ Extirpation of Matter from Right Femoral Artery, Open Approach (ICD-10-PCS; 2024-11-08)
PROC: 04UK0KZ Supplement Right Femoral Artery with Nonautologous Tissue Substitute, Open Approach (ICD-10-PCS; 2024-11-08)
PROC: 047H3FZ Dilation of Right External Iliac Artery with Three Intraluminal Devices, Percutaneous Approach (ICD-10-PCS; 2024-11-08)
DX: T82.898A Other specified complication of vascular prosthetic devices, implants and grafts, initial encounter (principal); Y83.1 Surgical operation with implant of artificial internal device as the cause of abnormal reaction of the patient, or of later complication, without mention of misadventure at the time of the procedure; I70.221 Atherosclerosis of native arteries of extremities with rest pain, right leg; I70.8 Atherosclerosis of other arteries; K31.84 Gastroparesis; M81.0 Age-related osteoporosis without current pathological fracture; F41.9 Anxiety disorder, unspecified; G50.0 Trigeminal neuralgia; E78.5 Hyperlipidemia, unspecified; J45.909 Unspecified asthma, uncomplicated; Z79.82 Long term (current) use of aspirin; Z79.02 Long term (current) use of antithrombotics/antiplatelets
CPT/HCPCS: 88304; 88311; 35371; 36415; 37221; 80048; 85025; 85027; 85610; 85730; 86850; 86900; 86901; 97162; 97166; C1769; C1874; C1894; Q9967

== ENCOUNTER → 2024-12-13 09:54 | Outpatient (REF) | payer MEDICARE, OTHER, SELFPAY | LOC: RAD 09:54 | PROVIDERS: ATTENDING PHYSICIAN Registered Nurse; FAMILY PHYSICIAN Student in an Organized Health Care Education/Training Program | DX: I70.221 Atherosclerosis of native arteries of extremities with rest pain, right leg (principal) | CPT/HCPCS: 93922; 93925; 93978 ==

== ENCOUNTER → 2025-04-28 10:58 | Outpatient (REF) | payer MEDICARE, OTHER, SELFPAY ==
[2025-04-28 11:40] LABS: % Basophils 0.5 % (0-2); % Eosinophils 1.8 % (0-6); % Immature Granulocytes 0.3 % (0-0.5); % Lymphocytes 19.9 % (20.5-51.1); % Neutrophils 71.5 % (42.2-75.2); Absolute Eosinophils 0.1 10^3/uL (0-0.7); Absolute Lymphocytes 1.2 10^3/uL (1.2-3.4); Absolute Monocytes 0.4 10^3/uL (0.1-0.6); Absolute Neutrophils 4.4 10^3/uL (1.4-6.5); Hematocrit 37.8 % (37.0-47.0); Hemoglobin 12.3 g/dL (12.0-16.0); Mean Corp Hgb Conc. 32.5 g/dL (33.0-37.0); Mean Corpuscular Hgb 30.1 pg (27.0-31.0); Mean Corpuscular Volume 92.6 fL (81.0-99.0); Mean Platelet Volume 10.3 fL (7.4-10.4); Nucleated Red Blood Cells % 0 %; Platelet Count 225 10^3/uL (130-400); Red Blood Cell Count 4.08 10^6/uL (4.20-5.40); White Blood Cell Count 6.2 10^3/uL (4.8-10.8)
[2025-04-28 12:07] LABS: ALT (SGPT) 35 U/L (0-35); AST (SGOT) 31 U/L (14-36); Albumin 4.5 g/dl (3.5-5.0); Alkaline Phosphatase 57 U/L (38-126); Blood Urea Nitrogen 17 mg/dl (7-17); Calcium 9.7 mg/dl (8.4-10.2); Carbon Dioxide 27 mmol/L (22-30); Chloride 103 mmol/L (98-107); Glucose 85 mg/dl (70-99); Potassium 4.6 mmol/L (3.5-5.1); Sodium 135 mmol/L (135-145); Total Bilirubin 0.3 mg/dl (0.2-1.3); Total Protein 6.9 g/dl (6.3-8.2); eGFR > 60.00
[2025-04-28 12:22] LABS: Free T3 3.61 pg/ml (2.77-5.27); Free T4 1.03 ng/dl (0.78-2.19)
[2025-04-28 12:36] LABS: TSH 0.32 uIU/ml (0.47-4.68)
== END ==
LOC: REG 10:58
PROVIDERS: ATTENDING PHYSICIAN Internal Medicine Endocrinology, Diabetes & Metabolism; FAMILY PHYSICIAN Student in an Organized Health Care Education/Training Program
DX: E05.11 Thyrotoxicosis with toxic single thyroid nodule with thyrotoxic crisis or storm (principal)
CPT/HCPCS: 36415; 80053; 84439; 84443; 84481; 85025

== ENCOUNTER → 2025-04-29 06:33 | Outpatient (REF) | payer MEDICARE, OTHER, SELFPAY | LOC: MRI 06:33 | PROVIDERS: ATTENDING PHYSICIAN Student in an Organized Health Care Education/Training Program | DX: R41.3 Other amnesia (principal) | CPT/HCPCS: 70551 ==

== ENCOUNTER → 2025-07-08 11:55 | Outpatient (REF) | payer MEDICARE, OTHER, SELFPAY | LOC: PAVMRI 11:55 | PROVIDERS: ATTENDING PHYSICIAN Pain Medicine Interventional Pain Medicine; FAMILY PHYSICIAN Student in an Organized Health Care Education/Training Program | DX: M54.14 Radiculopathy, thoracic region (principal) | CPT/HCPCS: 72146 ==

== ENCOUNTER → 2025-07-26 06:29 | Outpatient (REF) | payer MEDICARE, OTHER, SELFPAY | LOC: RAD 06:29 | PROVIDERS: ATTENDING PHYSICIAN Surgery Vascular Surgery; FAMILY PHYSICIAN Student in an Organized Health Care Education/Training Program | DX: I70.221 Atherosclerosis of native arteries of extremities with rest pain, right leg (principal) | CPT/HCPCS: 93922; 93925; 93978 ==

== ENCOUNTER → 2025-07-30 10:09 | Outpatient (REF) | payer MEDICARE, OTHER, SELFPAY ==
[2025-07-30 11:33] LABS: Blood Urea Nitrogen 20 mg/dl (7-17); Calcium 9.7 mg/dl (8.4-10.2); Carbon Dioxide 27 mmol/L (22-30); Chloride 103 mmol/L (98-107); Glucose 83 mg/dl (70-99); Potassium 4.4 mmol/L (3.5-5.1); Sodium 136 mmol/L (135-145); eGFR > 60.00
== END ==
LOC: REG 10:09
PROVIDERS: ATTENDING PHYSICIAN Surgery Vascular Surgery; FAMILY PHYSICIAN Student in an Organized Health Care Education/Training Program
DX: I77.9 Disorder of arteries and arterioles, unspecified (principal)
CPT/HCPCS: 36415; 80048

== ENCOUNTER → 2025-08-03 15:36 | Outpatient (REF) | payer MEDICARE, OTHER, SELFPAY | LOC: RAD 15:36 | PROVIDERS: ATTENDING PHYSICIAN Surgery Vascular Surgery; FAMILY PHYSICIAN Student in an Organized Health Care Education/Training Program | DX: I77.9 Disorder of arteries and arterioles, unspecified (principal) | CPT/HCPCS: 74174; Q9967 ==

== ENCOUNTER → 2025-08-04 14:10 | Outpatient (REF) | payer MEDICARE, OTHER, SELFPAY | LOC: HWRAD 14:10 | PROVIDERS: ATTENDING PHYSICIAN Internal Medicine Endocrinology, Diabetes & Metabolism; FAMILY PHYSICIAN Student in an Organized Health Care Education/Training Program | DX: E05.11 Thyrotoxicosis with toxic single thyroid nodule with thyrotoxic crisis or storm (principal) | CPT/HCPCS: 76536 ==

== ENCOUNTER 2025-08-19 19:48 | Inpatient (IN) | payer MEDICARE, OTHER, SELFPAY ==
[2025-08-19] VITALS (20 sets, daily range): BP systolic 77–161; BP diastolic 50–106; BMI 22.9
[2025-08-19 10:13] LABS: Hematocrit 37.1 % (37.0-47.0); Hemoglobin 12.2 g/dL (12.0-16.0); Mean Corp Hgb Conc. 32.9 g/dL (33.0-37.0); Mean Corpuscular Volume 91.4 fL (81.0-99.0); Platelet Count 219 10^3/uL (130-400); Red Cell Dist. Width 13.2 % (11.5-14.5)
[2025-08-19 10:26] LABS: INR 0.93; PT 12.8 Sec (11.4-14.6)
[2025-08-19 10:27] LABS: APTT 24.6 Sec (23.4-35.0)
[2025-08-19 10:28] LABS: Blood Urea Nitrogen 15 mg/dl (7-17); Calcium 9.3 mg/dl (8.4-10.2); Carbon Dioxide 31 mmol/L (22-30); Chloride 100 mmol/L (98-107); Glucose 96 mg/dl (70-99); Potassium 4.2 mmol/L (3.5-5.1); Sodium 135 mmol/L (135-145); eGFR > 60.00
[2025-08-19] MEDS: NSS 500 IV (10:50)
[2025-08-19] MEDS: VALIUM INJECTION 5 MG IV (12:59)
[2025-08-19] MEDS: DILAUDID 0.5 MG IV ×2 (17:08→17:21)
--- NOTE | 2025-08-19 17:08 | OR.RPT ---
Operative Report
Operative Report
Date of Operation: 08/19/2025
Pre Op Diagnosis: Recurrent right common femoral artery with history of femoral endarterectomy
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
Procedure:
1. Drug-coated balloon angioplasty to right common femoral artery (6 mm x 40 mm Lutonix)
2. Right lower extremity arteriogram
3. Ultrasound-guided percutaneous access to the left common femoral artery
Surgeon: Cristian Navarro III, MD
Supply Technician: Jane Boateng MD PGY2
Anesthesia: Sedation with local
Fluoroscopy:
8.1 min
53 mGy 9.01
9.01 gy.cm2
Complications: None
Estimated Blood Loss: Less than 10 cc
History and Indications for Procedure: 70-year-old female with history of complex aortoiliac endovascular stent grafting for calcified aortoiliac occlusive disease. She also had a prior right common femoral artery endarterectomy at that time. She
developed a restenosis on surveillance imaging in the right common femoral artery.
Procedure in Detail: Sita Ibarra was correctly identified and placed supine on the operating table. After adequate induction of anesthesia the bilateral groins were prepped and draped in the usual sterile fashion. A timeout was performed with the
nursing and anesthesia staff confirming the patient's identity as well as the nature and laterality of the procedure.
The left common femoral artery was identified under ultrasound guidance. The artery was patent with posterior calcified plaque present. The superior and inferior aspects of the femoral head were identified with radiographic guidance and marked at
the skin level. The proposed puncture site was infiltrated with local anesthesia. Under ultrasound guidance we accessed the left common femoral artery with a micropuncture needle and upsized to a 5 Fr sheath over a Bentson wire. The wire and a
Shepherds hook flush catheter were advanced into the distal abdominal aorta. Using a Glidewire and the Shepherds hook catheter we selected the right common iliac artery followed by the external iliac artery and then the right external iliac artery.
A catheter was tracked up and over the aortic bifurcation and placed in the distal right external iliac artery. A diagnostic right lower extremity arteriogram was then performed which demonstrated the following:
High-grade stenosis involving the right common femoral artery endarterectomy
Sluggish flow through the profunda femoral artery but was patent
Patent proximal superficial femoral artery
ENDOVASCULAR INTERVENTION: Systemic heparin was administered. Exchanged out for a 5 Fr 45 cm sheath over a Storq wire. Using a [place] catheter and Glidewire we were able to successfully navigate through the right common femoral artery stenosis.
The wire and catheter were advanced into the superficial femoral artery. Exchanged out for a Storq wire. The common femoral artery was predilated with a 6 mm x 40 mm angioplasty balloon. Following this the right common femoral artery was treated
with a 6 mm x 40 mm Lutonix drug-coated angioplasty balloon. Sizing was determined based off of the preoperative CT angiogram. The drug-coated angioplasty balloon was inflated to nominal pressure at the desired location under roadmap guidance and
held in place for a 3-minute inflation.
Subsequent arteriogram demonstrated an excellent technical result. The right common femoral artery was widely patent with no residual stenosis identified. No filling defects were identified. There was brisk flow through the right common femoral
artery with significantly improved outflow through the profunda femoral artery and superficial femoral artery.
Satisfied with this result we concluded the procedure. The sheath tip was pulled back into the left external iliac artery. Protamine was administered. The sheath was pulled and direct manual pressure was held over the puncture site until
hemostasis was achieved. A sterile dressing was applied..
The patient tolerated the procedure well and was taken to the recovery area in stable condition.
Attestation: I was present and responsible for the entire procedure.
Signed:
Crisitan Navarro III, MD
Vascular Surgery
[facility]
[2025-08-19] MEDS: DILAUDID 0.25 MG IV (17:58)
--- NOTE | 2025-08-19 18:58 | W.PN.SURGUPD ---
Surgical Update
Surgical Update
H&P
70 year old woman s/p RLE arteriogram and drug-coated balloon angioplasty to right common femoral artery (6 mm x 40 mm Lutonix). 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 DP/PT doppler
multiphasic bilaterally postprocedure.
Plan
Monitor overnight and resume home medications
--- NOTE | 2025-08-19 19:40 | PTCARENOTE ---
pt arrived from PACU @ 1930 s/p RLE arteriogram; pt safely moved from stretcher to bed; NC @ 2L; IVF per order; VSS; bed locked in lowest position; call gaming within reach; care ongoing;
[2025-08-19] MEDS: CRESTOR 10 MG PO (20:47)
[2025-08-19] MEDS: ZETIA 10 MG PO (20:47)
[2025-08-19] MEDS: MAGNESIUM OXIDE 400 MG PO (20:47)
[2025-08-19] MEDS: NSS 1000 IV (20:50)
[2025-08-19] MEDS: VALIUM 5 MG PO (20:54)
[2025-08-19] MEDS: ROXICODONE 15 MG PO (21:09)
[2025-08-19] MEDS: LIORESAL 5 MG PO (23:46)
[2025-08-19] MEDS: HEPARIN 5000 UNITS SC (23:49)
[2025-08-20] MEDS: ROXICODONE 15 MG PO ×2 (00:59→08:25)
[2025-08-20 03:00] VITALS: BP 113/58
[2025-08-20 05:38] VITALS: BMI 22.9
[2025-08-20 06:44] LABS: Hematocrit 34.1 % (37.0-47.0); Hemoglobin 11.2 g/dL (12.0-16.0); Mean Corp Hgb Conc. 32.8 g/dL (33.0-37.0); Mean Corpuscular Volume 90.9 fL (81.0-99.0); Platelet Count 182 10^3/uL (130-400); Red Cell Dist. Width 13.1 % (11.5-14.5)
[2025-08-20 06:52] LABS: INR 1.06; PT 14.1 Sec (11.4-14.6)
[2025-08-20 06:53] LABS: APTT 26.2 Sec (23.4-35.0)
[2025-08-20 07:16] LABS: ALT (SGPT) 17 U/L (0-35); AST (SGOT) 22 U/L (14-36); Albumin 3.6 g/dl (3.5-5.0); Alkaline Phosphatase 46 U/L (38-126); Blood Urea Nitrogen 10 mg/dl (7-17); Calcium 8.7 mg/dl (8.4-10.2); Carbon Dioxide 25 mmol/L (22-30); Chloride 108 mmol/L (98-107); Estimated Creatinine Clearance 76 ml/min; Glucose 114 mg/dl (70-99); Potassium 4.0 mmol/L (3.5-5.1); Sodium 136 mmol/L (135-145); Total Protein 5.9 g/dl (6.3-8.2); eGFR > 60.00
[2025-08-20 07:20] VITALS: BP 118/52
[2025-08-20] MEDS: VITAMIN D3 (cholecalciferol) 25 MCG PO (08:27)
[2025-08-20] MEDS: HEPARIN 5000 UNITS SC (08:27)
[2025-08-20] MEDS: PROTONIX 40 MG PO (08:27)
[2025-08-20] MEDS: ASPIR LOW (ENTERIC COATED) 81 MG PO (08:27)
[2025-08-20] MEDS: PLAVIX 75 MG PO (08:27)
[2025-08-20] MEDS: VALIUM 5 MG PO (09:37)
[2025-08-20 11:10] VITALS: BP 127/53
[2025-08-20] MEDS: NSS 1000 IV (12:04)
--- NOTE | 2025-08-20 12:28 | CM ---
IA completed with pt at bedside.
Pt was admitted for post operative monitoring.
At baseline, pt lives with her and son in a 4story home with [facility]. Pt bedroom/bath is on the 2nd floor but does have a 1st floor bath available to limit stairs during the day.
Pt is indep at baseline and does not use dme. Per pt, she does drive, but prefers her son to do longer distance driving.
Pt is on [facility] and has office visits every 6weeks or as needed. Pt plans to contact her [place].
PCP; Sol Gaxiola
Pharm; [facility]
PLAN; Home with no needs
--- NOTE | 2025-08-20 14:46 | W.DS.TRANS ---
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
-
Discharge Instructions:
Discharge Diagnosis/Procedures Right lower extremity angiogram
Diet As tolerated
Activity No strenuous activity
Driving Restrictions No driving for 48 hours
Bathing Restrictions OK to Shower
Instructions:
Stand-Alone Forms: Vascular Surg Discharge Instr
Changes to Home Medications: No
Discharge Medications:
DC Medications w/original date entered in [employer]
albuterol sulfate 90 mcg/actuation aerosol inhaler 2 puff inhalation BID PRN allergy/asthma 12/11/15
aspirin 81 mg tablet,delayed release 81 mg PO DAILY Blood Clot Prevention/Tx 09/16/23
diazepam 5 mg tablet 5 mg PO BID Mental Health/Anxiety 09/16/23
dicyclomine 10 mg capsule 10 mg PO TID PRN stomach spams 09/16/23
ezetimibe 10 mg tablet (Zetia) 10 mg PO QPM High Cholesterol 09/16/23
omeprazole 40 mg capsule,delayed release 40 mg PO DAILY Gastrointestinal Issue 09/16/23
ondansetron 4 mg disintegrating tablet 4 mg PO Q6H PRN nausea 09/16/23
rosuvastatin 10 mg tablet 10 mg PO QPM High Cholesterol 09/16/23
clopidogrel 75 mg tablet 75 mg PO DAILY #90 tabs 09/26/23
fluticasone furoate 27.5 mcg/actuation nasal spray,suspension (Flonase Sensimist) 2 spray intranasal DAILYPRN PRN congestion 09/26/23
simethicone 125 mg chewable tablet 250 mg PO BID PRN gas 09/26/23
cholecalciferol (vitamin D3) 25 mcg (1,000 unit) capsule (Vitamin D3) 25 mcg PO DAILY Supplement 09/20/24
docusate sodium 100 mg capsule (Colace) 100 mg PO DAILY PRN constipation 09/20/24
magnesium 200 mg tablet 200 mg PO QPM Supplement 09/20/24
polyethylene glycol 3350 17 gram/dose oral powder (Miralax) 4 g PO DAILY PRN constipation 09/20/24
baclofen 5 mg tablet 5 mg PO DAILY PRN Pain 09/21/24
diazepam 5 mg tablet 5 mg PO PRN PRN intense anxiety 08/17/25
oxycodone 15 mg tablet 15 mg PO Q6H PRN pain 08/17/25
Home Medication Changes
Pending Results: No
[2025-08-20 15:05] VITALS: BP 138/52
== END 2025-08-20 15:37 | disposition home or self-care (01) | DRG 254 ==
LOC: 2 SOUTH 19:48
PROVIDERS: ADMITTING PHYSICIAN Surgery Vascular Surgery; PRIMARYCARE PHYSICIAN Student in an Organized Health Care Education/Training Program
PROC: B41F1ZZ Fluoroscopy of Right Lower Extremity Arteries using Low Osmolar Contrast (ICD-10-PCS; 2025-08-19)
PROC: 047K3Z1 Dilation of Right Femoral Artery using Drug-Coated Balloon, Percutaneous Approach (ICD-10-PCS; 2025-08-19)
DX: I70.221 Atherosclerosis of native arteries of extremities with rest pain, right leg (principal)
CPT/HCPCS: 37224; 75710; 80048; 80053; 82248; 85027; 85610; 85730; 86850; 86900; 86901; 93005; C1725; C1769; C1894; C2623; Q9967

== ENCOUNTER → 2025-09-14 07:40 | Outpatient (REF) | payer MEDICARE, OTHER, SELFPAY | LOC: RAD 07:40 | PROVIDERS: ATTENDING PHYSICIAN Surgery Vascular Surgery; FAMILY PHYSICIAN Student in an Organized Health Care Education/Training Program | DX: I77.9 Disorder of arteries and arterioles, unspecified (principal) | CPT/HCPCS: 93922; 93925 ==

== ENCOUNTER → 2025-10-17 15:00 | Outpatient (REF) | payer MEDICARE, OTHER, SELFPAY | LOC: REG 15:00 | PROVIDERS: ATTENDING PHYSICIAN Student in an Organized Health Care Education/Training Program | DX: Z51.5 Encounter for palliative care (principal) | CPT/HCPCS: 93005 ==

== ENCOUNTER → 2025-10-28 11:47 | Outpatient (REF) | payer MEDICARE, OTHER, SELFPAY | LOC: REG 11:47 | PROVIDERS: ATTENDING PHYSICIAN Student in an Organized Health Care Education/Training Program; FAMILY PHYSICIAN Student in an Organized Health Care Education/Training Program | DX: R94.31 Abnormal electrocardiogram [ECG] [EKG] (principal) | CPT/HCPCS: 93005 ==